=== PATIENT | female | born 1980 | race Caucasian/White ===

== ENCOUNTER 2016-11-26 17:15 | Emergency (ER) | payer OTHER ==
[~2016-11-26] VITALS: Ht 172.7 cm; Wt 85.9 kg
[~2016-11-26 17:15] MED LIST: AMBIEN10 M1 PO; ASC500 PO; DSS100 PO; Docusate Sodium PO; HYDR2TAB28 PO; HYDR50CA PO; IBUP-1152 PO; Ibuprofen PO; Magnesium; OXYC1TAB11 PO; Vitamin D; melatonin; prenatal vitamins
[2016-11-26 17:18] VITALS: BP 129/81; PULSE 78; RESP 16; O2SAT 96
== END 2016-11-26 18:07 | disposition left against medical advice (07) ==
LOC: SED 17:15
DX: Z53.21 Procedure and treatment not carried out due to patient leaving prior to being seen by health care provider (principal)